=== PATIENT | female | born 1940 | race African-American/Black ===

== ENCOUNTER 2021-09-13 16:07 | Emergency (ER) | payer OTHER ==
[~2021-09-13] VITALS: Ht 177.8 cm; Wt 63.5 kg
[2021-09-13 16:07] VITALS: BP 157/73
[~2021-09-13 16:07] MED LIST: AMLODIPINE BESY10 MG PO; APAP500 PO; ASPIRIN EC81 M1 PO; B12INJ IM; CHLORTHALIDONE25 MG PO; CLONIDINE0.1 PO; ESTRACE0.5 MG PO; FUROSEMIDE 20 M20 M1 PO; GABAPENTIN100 MG PO; GLIPIZIDE ER2.5 MG PO; GLUCOPHAGE1000 MG PO; HYDRALAZINE 2525 MG PO; JANUVIA100 MG PO; LEVEMIR; LISINOPRIL20 MG PO; MELATONIN3 MG PO; PRENATAL PO; PRILOSEC 20 MG20 MG PO; PURELAX17 GM PO; SENEXON-S TABL1 EACH PO; TOPROL XL100 MG PO; TRADJENTA5 MG PO; TRAMADOL 50 MG50 MG PO; TYLENOL EX-STR500 M2 PO; VITAMIN D3400 UNIT PO
== END 2021-09-13 17:14 | disposition home or self-care (01) ==
LOC: ER 16:07
DX: S80.11XA Contusion of right lower leg, initial encounter (principal); R07.89 Other chest pain; I10 Essential (primary) hypertension; K21.9 Gastro-esophageal reflux disease without esophagitis; E11.9 Type 2 diabetes mellitus without complications; M79.7 Fibromyalgia; Z85.528 Personal history of other malignant neoplasm of kidney; Z90.49 Acquired absence of other specified parts of digestive tract; Z79.82 Long term (current) use of aspirin; Z79.4 Long term (current) use of insulin; Z79.891 Long term (current) use of opiate analgesic; Z79.899 Other long term (current) drug therapy; Z79.1 Long term (current) use of non-steroidal anti-inflammatories (NSAID); Z88.5 Allergy status to narcotic agent; Z88.2 Allergy status to sulfonamides; Z88.8 Allergy status to other drugs, medicaments and biological substances; Z91.040 Latex allergy status; V49.00XA Driver injured in collision with unspecified motor vehicles in nontraffic accident, initial encounter; Y93.89 Activity, other specified; Y92.89 Other specified places as the place of occurrence of the external cause; Y99.8 Other external cause status